=== PATIENT | female | born 1955 | race Caucasian/White ===

== ENCOUNTER 2018-05-01 07:06 | Emergency (ER) | payer OTHER ==
[~2018-05-01] VITALS: Ht 160 cm; Wt 75.3 kg
[~2018-05-01 07:06] MED LIST: CLONAZEPAM0.5 MG PO; MELOXICAM15 MG PO
--- OUTSIDE RECORDS SUMMARY | 2018-05-01 07:08 | XMS ---
PreManage Notification: JESE FRIEDMAN Security Pre Press Proofer Events No recent Security Events currently on file [facility] There are no care providers on record at this time. Lenka has no Care Guidelines for this patient. L[place] VISIT COUNT (12 MO.) 1 AUGIE Dawson TOTAL 1 NOTE: Visits indicate total known visits. ED/UCC VISIT TRACKING (12 MO.) 05/01/2018 07:07 AUGIE Diallo OR TYPE: Emergency COMPLAINT: - L HAND LAC INPATIENT VISIT TRACKING (12 MO.) No inpatient visits to display in this time frame [id number]
[2018-05-01] MEDS ORDERED: INCRUSE ELLI62.5 MCG INH (07:27)
[2018-05-01] MEDS ORDERED: METOPROLOL SUCC25 MG PO (07:28)
== END 2018-05-01 08:15 | disposition home or self-care (01) ==
LOC: ED 07:06
PROC: 0XQJXZZ Repair Right Hand, External Approach (ICD-10-PCS; principal; 2018-05-01)
DX: S61.411A Laceration without foreign body of right hand, initial encounter (principal); J44.9 Chronic obstructive pulmonary disease, unspecified; G47.30 Sleep apnea, unspecified; Z90.710 Acquired absence of both cervix and uterus; Z79.899 Other long term (current) drug therapy; Z23 Encounter for immunization; W26.0XXA Contact with knife, initial encounter
CPT/HCPCS: 12002; 90471; 90715; 99282-25

== ENCOUNTER 2018-08-12 08:51 | Day surgery (SDC) | payer OTHER ==
[~2018-08-12 08:51] MED LIST changes: +INCRUSE ELLI62.5 MCG INH; +METOPROLOL SUCC25 MG PO
--- NOTE | 2018-08-12 09:13 | NUR ---
0900 TO TREATMENT HERE FOR BX IN PT ROOM. Mayank Sigala NOTIFIED AND DR BIRMINGHAM NOTIFIED. ORIENTED TO .
--- NOTE | 2018-08-13 22:35 | OR ---
[facility] [address] [place], [place] [address] Signed DATE OF OPERATION: 08/12/2018 SURGEON: Amber Birmingham MD PREOPERATIVE DIAGNOSES: 1. Right 1.6 cm thyroid nodule. 2. Family history of thyroid cancer. POSTOPERATIVE DIAGNOSES: 1. Right 1.6 cm mixed cystic-solid thyroid nodule. 2. Multiple family members with thyroid cancer. PROCEDURES: 1. Ultrasound of thyroid. 2. Ultrasound-guided fine-needle aspiration biopsy, right thyroid nodule. ANESTHESIA: 1% lidocaine. INDICATIONS: This 63-year-old white woman is a patient of KELLEY Moy and known to me from the past. She has multiple family members with thyroid carcinoma. Thyroid ultrasound performed in 2016 showed less than 1 cm thyroid nodules. Surveillance ultrasound on June 15, 2018 showed a right-sided thyroid nodule that was solid and 1.6 cm in size. Given her family history of thyroid cancer and despite this abnormality being asymptomatic, I have recommended ultrasound-guided fine-needle aspiration biopsy. The risks of bleeding, infection, failure of diagnosis, misdiagnosis, and need for other additional treatment was reviewed with her. She wished to proceed. FINDINGS: Ultrasound evaluation of the thyroid showed the right-sided nodule to be a mixed solid-cystic lesion. The left lobe appeared free of any sizable nodule of any sort. Fine-needle aspiration biopsy of the lesion initially delivered some ahumada clear fluid, but solid components were subsequently multiply biopsied with fine-needle aspiration technique under direct visualization without problem. DESCRIPTION OF PROCEDURE: The patient was placed in the procedure room in the Day Surgery area. A pillow placed beneath the shoulders allowing for extension of her neck to the limit of discomfort. Electronically Signed By: AMBER BIRMINGHAM MD 08/13/18 2235 PATIENT NAME: JESE FRIEDMAN OPERATIVE REPORT DATE OF : 59 REPORT #: [id number] PHYSICIAN: AMBER BIRMINGHAM MD PCP: MANJU DASILVA PAC REPORT IS CONFIDENTIAL AND NOT TO BE RELEASED WITHOUT AUTHORIZATION [facility] [address] [place], [place] [address] Signed The neck was evaluated with ultrasound probe from the [employer] device getting a good clear picture of both right and left lobes. A sizable right-sided thyroid lesion was noted. It appeared dominantly cystic, but with solid components. The neck was then prepared with a chlorhexidine solution and draped sterilely and the ultrasound probe placed in a sterile sleeve. Sterile gel was applied to the neck and re-evaluation undertaken. About 1 mL of 1% lidocaine was injected in area anticipating puncture site with a needle. An ultrasound probe was used to guide a 22-gauge needle on a controlled tip 10 mL syringe directly into the nodular area. Aspiration of ahumada thyroid fluid was noted, but solid components of the nodule remained. The fluid was offloaded and repeat aspiration undertaken. Multiple passes were taken through the nodular solid area. Two additional syringes and needles were used to provide hopefully ample cytologic material. There was no problem or complication. A Band-Aid was applied to the puncture site. MD MIGUEL Benjamin/HONEY /[id number] cc: Manju Dasilva PA-C Copies: MANJU DASILVA ~ Electronically Signed By: AMBER BIRMINGHAM MD 08/13/18 2235 PATIENT NAME: JESE FRIEDMAN OPERATIVE REPORT DATE OF : 59 REPORT #: [id number] PHYSICIAN: AMBER BIRMINGHAM MD PCP: MANJU DASILVA REPORT IS CONFIDENTIAL AND NOT TO BE RELEASED WITHOUT AUTHORIZATION
== END 2018-08-12 10:45 | disposition home or self-care (01) ==
LOC: DS 08:51 → OPS 08:51 → DS 10:15 → OPS 10:15
PROC: 0G9H3ZX Drainage of Right Thyroid Gland Lobe, Percutaneous Approach, Diagnostic (ICD-10-PCS; principal; 2018-08-12)
PROC: BG44ZZZ Ultrasonography of Thyroid Gland (ICD-10-PCS; 2018-08-12)
DX: E04.1 Nontoxic single thyroid nodule (principal); J44.9 Chronic obstructive pulmonary disease, unspecified; Z79.899 Other long term (current) drug therapy; F41.9 Anxiety disorder, unspecified; G47.30 Sleep apnea, unspecified; Z80.8 Family history of malignant neoplasm of other organs or systems; Z99.89 Dependence on other enabling machines and devices; Z87.891 Personal history of nicotine dependence

== ENCOUNTER 2019-12-08 08:44 | Day surgery (SDC) | payer OTHER ==
--- NOTE | 2019-12-08 09:20 | NUR ---
PATIENT ARRIVES TO DEPARTMENT AMBULATORY. PLACED IN ROOM [address] BIRMINGHAM. WARM BLANKET GIVEN. PATIENT PLACES GOWN ON. CALL LIGHT WITHIN REACH.
--- NOTE | 2019-12-08 10:38 | NUR ---
TWIN RN IS PRESENT WITH DR BIRMINGHAM FOR BIOPSY. PATIENT IS GIVEN DISCHARGE INSTRUCTIONS, WHICH SHE VERBALIZES UNDERSTANDING OF. SHE IS DISCHARGED HOME AMBULATORY.
--- NOTE | 2019-12-08 12:15 | OR ---
[facility] [address] [place], [place] [address] Signed DATE OF OPERATION: 12/08/2019 SURGEON: Amber Birmingham MD PREOPERATIVE DIAGNOSES: 1. Right 1.8 cm mixed cystic/solid thyroid nodule. 2. Family history of thyroid cancer, multiple family members. POSTOPERATIVE DIAGNOSES: 1. Right 1.8 cm mixed cystic/solid thyroid nodule. 2. Family history of thyroid cancer, multiple family members. PROCEDURES: 1. Ultrasound-guided fine-needle aspiration biopsy, right thyroid nodule. 2. Secondary aspiration and collection for Afirma as needed. ANESTHESIA: A 1% lidocaine, local. INDICATIONS: This 64-year-old white woman underwent fine-needle aspiration biopsy of the mixed cystic/solid nodule by me a year ago in July. She has a significant family history of thyroid cancer in 3 family members. Surveillance of the fine-needle aspiration biopsy was nondiagnostic previously. The repeat ultrasound was performed showing the nodule to be about the same. Given the family history, an additional fine-needle aspiration biopsy has been recommended by me to her. The risks of bleeding, infection, failure of diagnosis, missed diagnosis, and so forth was reviewed in detail. She understands and wished to proceed. FINDINGS: The nodule in question was easily identified with the SonoSite ultrasound device. Direct aspiration was undertaken under direct visualization. Three regular samples were taken as was Afirma vial on the possibility category lesion is identified. The Afirma will not be done until the pathology on the fine-needle aspiration biopsy itself is complete. DESCRIPTION OF PROCEDURE: In the Day Surgery Area, the patient in supine position with a pillow beneath her shoulders. The anterior neck was surveyed with the SonoSite ultrasound device identifying well the trachea and thyroid lobes. The right thyroid lobe, which was mixed Electronically Signed By: AMBER BIRMINGHAM MD 12/08/19 1215 PATIENT NAME: JESE FRIEDMAN OPERATIVE REPORT DATE OF : 59 REPORT #: [id number] PHYSICIAN: AMBER BIRMINGHAM MD PCP: OTONIEL VIDAL PAC REPORT IS CONFIDENTIAL AND NOT TO BE RELEASED WITHOUT AUTHORIZATION [facility] [address] [place], [place] [address] Signed cystic and solid was easily identified. The neck was prepared with a chlorhexidine solution and draped sterilely and using sterile technique including glove and gown and so forth, under direct visualization with the ultrasound probe in a sterile sleeve, 1% lidocaine was injected locally. With a lateral technique, a 22-gauge needle with aspiration syringe was guided to the nodule in question. Multiple passes were taken through it. This was repeated three times. Additional syringe was taken for Afirma material. She tolerated the procedure well. Band-Aid was applied. MD MIGUEL Benjamin/HALLIEL /[id number] Copies: ~ Electronically Signed By: AMBER BIRMINGHAM MD 12/08/19 1215 PATIENT NAME: JESE FRIEDMAN OPERATIVE REPORT DATE OF : 59 REPORT #: [id number] PHYSICIAN: AMBER BIRMINGHAM MD PCP: OTONIEL VIDAL PAC REPORT IS CONFIDENTIAL AND NOT TO BE RELEASED WITHOUT AUTHORIZATION
== END 2019-12-08 18:00 | disposition home or self-care (01) ==
LOC: DS 08:44 → OPS 08:44 → EDSTATUS 09:00 → DS 09:00
PROVIDERS: ATTEND Surgery
DX: E04.1 Nontoxic single thyroid nodule (principal); F41.9 Anxiety disorder, unspecified; G47.30 Sleep apnea, unspecified; M19.90 Unspecified osteoarthritis, unspecified site; G25.81 Restless legs syndrome; D69.6 Thrombocytopenia, unspecified; Z79.899 Other long term (current) drug therapy
CPT/HCPCS: 10004; 10021

== ENCOUNTER 2021-02-01 11:56 | Emergency (ER) | payer OTHER ==
[~2021-02-01] VITALS: Ht 160 cm; Wt 75.3 kg
--- OUTSIDE RECORDS SUMMARY | 2021-02-01 12:00 | XMS ---
PreManage Notification: JESE FRIEDMAN Security Processor Inspector Events No recent Security Events currently on file CRITERIA MET - [facility] CARE PROVIDERS OTONIEL VIDAL Physician Manager Developmental 05/02/2018-Current PHONE: Unknown Lenka has no Care Guidelines for this patient. EIsha VISIT COUNT (12 MO.) 1 AUGIE Dawson TOTAL 1 NOTE: Visits indicate total known visits. ED/UCC VISIT TRACKING (12 MO.) 02/01/2021 11:57 AUGIE Diallo OR TYPE: Emergency COMPLAINT: - CHEST PAIN INPATIENT VISIT TRACKING (12 MO.) No inpatient visits to display in this time frame [email or web address]
[2021-02-01] MEDS ORDERED: VENTOLIN HFA18 GM INH (12:07)
[2021-02-01] MEDS ORDERED: SPIRIVA18 MCG INH (12:07)
--- NOTE | 2021-02-01 18:18 | EKG ---
[facility] [address] [facility] [place], [place] [address] Signed Sinus rhythm with occasional premature ventricular complexes Nonspecific ST and T wave abnormality Abnormal ECG No previous ECGs available Confirmed by ZOHREH RAINEY MD ([id number]) on 02/01/2021 6:18:50 PM Electronically Signed By: ZOHREH RAINEY MD 02/01/211817 PATIENT NAME: JESE FRIEDMANN Electrocardiogram DATE OF : 59 PHYSICIAN: ZOHREH RAINEY MD REPORT #: [id number] REPORT IS CONFIDENTIAL AND NOT TO BE RELEASED WITHOUT AUTHORIZATION
--- NOTE | 2021-02-01 18:20 | EKG ---
[facility] [address] [facility] [place] [address] Signed Normal sinus rhythm Nonspecific ST and T wave abnormality Abnormal ECG When compared with ECG of 01-FEB-2021 12:05, (Unconfirmed) premature ventricular complexes are no longer present Confirmed by ZOHREH RAINEY MD ([id number]) on 02/01/2021 6:19:58 PM Electronically Signed By: ZOHREH RAINEY MD 02/01/211819 PATIENT NAME: JESE FRIEDMAN Electrocardiogram DATE OF : 59 PHYSICIAN: ZOHREH RAINEY MD REPORT #: [id number] REPORT IS CONFIDENTIAL AND NOT TO BE RELEASED WITHOUT AUTHORIZATION
== END 2021-02-01 14:48 | disposition home or self-care (01) ==
LOC: ED 11:56
DX: R07.89 Other chest pain (principal); J44.9 Chronic obstructive pulmonary disease, unspecified; G47.30 Sleep apnea, unspecified; Z79.899 Other long term (current) drug therapy
CPT/HCPCS: 71045; 80048; 84484; 85025; 93005; 93010; 99285-25

== ENCOUNTER 2022-01-30 08:22 | Day surgery (SDC) | payer OTHER ==
[~2022-01-30] VITALS: Ht 160 cm; Wt 72.7 kg
--- NOTE | ~2022-01-30 | OR ---
[facility] [address] [place], [place] [address] Draft DATE OF OPERATION: 01/30/2022 SURGEON: Amber Birmingham MD PREOPERATIVE DIAGNOSIS: Distant history of colonic polyps. POSTOPERATIVE DIAGNOSIS: Sigmoid and left-sided diverticulosis. PROCEDURES: Total colonoscopy to cecum. ANESTHESIA: Intravenous sedation, fentanyl 150 mcg and Versed 7 mg. INDICATIONS: This 66-year-old white woman is a patient of Otoniel Dasilva PA-C. She has a history of polyps, having undergone colonoscopy by Dr. Alexy Kurtz in the past. Her last colonoscopy was seven years ago. She has no symptoms of bleeding, diarrhea, or constipation currently. She has no family history of colon cancer. I had performed colonoscopy in 2014 showing extensive diverticular changes of sigmoid and left colon; her polyps were noted five years prior to that (2011). She is admitted at this time to undergo colonoscopy, understands the risks of bleeding, infection, and perforation. FINDINGS: The prep was excellent. Complete colonoscopy was undertaken to the cecum. She had extensive diverticular change of the sigmoid and left colon, but no evidence of polyps, colitis, or cancer. DESCRIPTION OF PROCEDURE: The patient was brought to the endoscopy suite and placed in lateral decubitus position given intravenous sedation to the point of slurred speech and nystagmus. Digital rectal examination was normal. An Olympus video colonoscope was passed into the rectum and manipulated throughout the colon noting diverticular change of the sigmoid and left colon. The scope was advanced ultimately to the cecum. The ileocecal valve and appendiceal orifice were normal. The scope was withdrawn from that point. Examination throughout showed no sign of abnormality other than diverticulosis. Retroflexed view was normal as well. The scope PATIENT NAME: JESE FRIEDMAN OPERATIVE REPORT DATE OF : 59 REPORT #: [id number] PHYSICIAN: AMBER BIRMINGHAM MD PCP: OTONIEL DASILVA REPORT IS CONFIDENTIAL AND NOT TO BE RELEASED WITHOUT AUTHORIZATION [facility] [address] [place] [id number] Draft was removed. The patient was taken to the recovery room in good condition. CONCLUDING DIAGNOSIS: Extensive sigmoidal and left-sided colonic diverticulosis. No evidence of polyps or cancer. PLAN: Recommend repeat colonoscopy in 10 years or sooner if clinically indicated. She will return to the ongoing care of Otoniel Dasilva PA-C. MD MIGUEL Benjamin/HONEY /[id number] cc: Otoniel Dasilva PA-C Copies: OTONIEL DASILVA ~ PATIENT NAME: JESE FRIEDMAN OPERATIVE REPORT DATE OF : 59 REPORT #: [id number] PHYSICIAN: AMBER BIRMINGHAM MD PCP: OTONIEL DASILVA PAC REPORT IS CONFIDENTIAL AND NOT TO BE RELEASED WITHOUT AUTHORIZATION
[~2022-01-30 08:22] MED LIST changes: +SPIRIVA18 MCG INH; +VENTOLIN HFA18 GM INH
--- NOTE | 2022-01-30 09:49 | NUR ---
PT UPDATED AND MONTH SWAB GIVEN. PT RESTING IN BED WITH NO CONCERNS AT THIS TIME. PT UPDATED BY HER OWN PHONE.
--- NOTE | 2022-01-30 11:54 | NUR ---
01/30/22 1154 Maddy Mann 1150-PT TO PACU IN SUPINE POSITION. EYES OPEN ASKING QUESTIONS ABOUT PROCEDURE. BREATHING EASY AND UNLABORED. SPO2 >95% ON 3 L O2 VIA NC. O2 TITRATED DOWN TO ROOM AIR. PT REPOSIONTS SELF TO LL POSITION. PT ENCOURAGED TO PASS GAS AND EDUCATED ON POC FOR PACU INCLUDING DC CRITERION. 1154-PT RESTING COMFORTABLY, OPENS EYES INTERMITTANTLY WITHOUT RN STIMULI. BREATHING EASY AND UNLABORED. SPO2 >95% ON ROOM AIR. PT PASSING GAS.
== END 2022-01-30 12:20 | disposition home or self-care (01) ==
LOC: OPS 08:22 → DS 08:28 → OPS 09:45 → DS 14:00
PROVIDERS: ATTEND Surgery
PROC: 0DJD8ZZ Inspection of Lower Intestinal Tract, Via Natural or Artificial Opening Endoscopic (ICD-10-PCS; principal; 2022-01-30 09:45)
DX: Z12.11 Encounter for screening for malignant neoplasm of colon (principal); E04.1 Nontoxic single thyroid nodule; K57.30 Diverticulosis of large intestine without perforation or abscess without bleeding; G25.81 Restless legs syndrome; D69.3 Immune thrombocytopenic purpura; J44.9 Chronic obstructive pulmonary disease, unspecified; G47.30 Sleep apnea, unspecified; Z86.010 Personal history of colon polyps; Z87.891 Personal history of nicotine dependence; Z80.8 Family history of malignant neoplasm of other organs or systems
CPT/HCPCS: J2250; J3010; J7121